=== PATIENT | male | born 1945 | race African-American/Black ===

== ENCOUNTER 2017-04-26 03:53 | Emergency (ER) | payer OTHER ==
[2017-04-26 04:03] VITALS: BP 168/79; BMI 32.3
--- NOTE | 2017-04-26 04:42 | DR.HTN ---
HPI - Time Seen Time seen: 04:14 - Primary Care Physician Primary Care Physician: SUNNY - Complaints Chief Complaint Doctors Comments: Patients spouse is here to get her blood pressure evaluated. She has been seen by her primary care provider and her blood pressure is not controlled. She is on single drug therapy. Chief Complaint:: MY BLOOD PRESSURE WAS HIGH ONCE THIS WEEK SO SINCE I AM HERE I WANT TO GET MINE CHECKED. DENIES ANY PAIN, DENIES ANY SHORTNESS OF BREATH. - Source History Provided: Patient - Mode of Arrival Mode of Arrival: Ambulatory - Timing Onset of Chief Complaint: 04/26/17 PMH - PMH Past Medical History: Yes Past Medical History: Dyslipidemia, Gout, Hypertension Past Surgical History: Yes Surgical History: Angioplasty/Stents - Family History History of Family Medical Conditions: Yes Family Medical History: Diabetes Mellitus, Hypertension - Social History Does patient currently use any type of tobacco product: No Have you used tobacco products in the last 12 months: No Type of Tobacco Use: None Does any household member use tobacco: No Alcohol Use: None Do you use any recreational Drugs:: No Lives With: Spouse Lives Where: Home - infectious screening Have you traveled outside the country in the last 6 months?: No Isolation: Standard ROS - Review of Systems Eyes: No Symptoms Reported ENTM: No Symptoms Reported Respiratoy: No Symptoms Reported Cardiovascular: No Symptoms Reported Gastrointestinal/Abdominal: No Symptoms Reported Genitourinary: No Symptoms Reported Neurological: No Symptoms Reported Musculoskeletal: No Symptoms Reported Integumentary: No Symptoms Reported Hematologic/Lymphatic: No Symptoms Reported Endocrine: No Symptoms Reported Psychiatric: No Symptoms Reported All Other Systems: Reviewed and Negative PE - Vital Signs Vitals: Temperature 98.6 F Pulse Rate 73 Respiratory Rate 18 Blood Pressure [Left Arm] 130/91 Blood Pressure [Right Arm] 129/68 Blood Pressure 168/79 O2 Sat by Pulse Oximetry 95 - General Limitations: No Limitations General Appearance: Alert - Head Head Exam: Normal Inspection, Atraumatic - Eyes Eye exam: Normal Appearance, PERRL, EOMI Pupils: Regular, Round: Bilateral Sclera/Conjunctival: Normal Inspection: Bilateral - ENT ENT Exam: Normal Exam, Normal Oropharynx - Neck Neck Exam: Normal Inspection, Full ROM - Chest Chest Inspection: Normal Inspection - Respiratory Respiratory Exam: Normal Lung Sounds Bilat Respiratory Exam: Bilateral Clear to Auscultation - Cardiovascular Cardiovascular Exam: Regular Rate, Normal Rhythm - Abdominal Exam Abdominal Exam: Normal Inspection, Normal Bowel Sounds Abdominal Tenderness: negative: RUQ, RLQ, LUQ, LLQ, Epigastrium, Suprapubic, Diffuse, Mild, Moderate, Severe, Other - Extremities Extremities Exam: Normal Inspection, Full ROM - Back Back Exam: Normal Inspection - Neurologic Neurological Exam: Alert, Oriented X3, CN II-XII Intact Speech: Fluid Speech Cranial Nerve Exam: EOM Function (II, III, IV, ): Normal Motor Strength - LUE: 3/5 Upper Motor Neuron Exam: Goyo Neglect: Normal Sensory Exam Upper Extremity: Light Touch: Normal Sensory Exam Lower Extremity: Light Touch: Normal - Psychiatric Psychiatric Exam: Normal Affect - Diagnosis Discharge Problem: Hypertension Qualifiers: Hypertension type: essential hypertension Qualified Code(s): I10 - Essential ( primary) hypertension - Discharge Plan Condition: Stable - Follow ups/Referrals Follow ups/Referrals: MARYELLEN CORREA [Primary Care Provider] - 3 days - Instructions
== END 2017-04-26 05:34 | disposition home or self-care (01) ==
LOC: ER 03:53
DX: I10 Essential (primary) hypertension (principal)
CPT/HCPCS: 99281; 99282

== ENCOUNTER 2017-07-23 16:14 | Observation (INO) | payer OTHER ==
[2017-07-23] MEDS ORDERED: MORPHINE SULFATE INJ 2 MG INJ IVP PRN (17:07)
[2017-07-23] MEDS ORDERED: APRESOLINE INJ 20 MG VIAL IVP PRN (17:07)
[2017-07-23 17:34] VITALS: BMI 33.2
[2017-07-23 17:45] LABS: ALANINE AMINOTRANSFERASE 12 Units/L (12-78); ALBUMIN 3.1 g/dL (3.4-5.0); ALKALINE PHOSPHATASE 114 Units/L (46-116); ASPARTATE AMINO TRANSFERASE < 6 Units/L (15-37); BLOOD UREA NITROGEN 10 mg/dL (7-18); CHLORIDE 105 mmol/L (98-107); COR CA(FOR HYPOALB) 9.7 mg/dL (8.5-10.1); CREATININE 0.98 mg/dL (0.70-1.30); MAGNESIUM 1.7 mg/dL (1.7-2.9); SODIUM 139 mmol/L (136-145); TOTAL PROTEIN 7.8 g/dL (6.4-8.2); eGFR BLACK RACES > 60 (>60); eGFR NON BLACK RACES > 60 (>60)
[2017-07-23] MEDS ORDERED: MAGNESIUM SULFATE 1 GM/100 mL PREMIX 1 GM/100 ML BAG IV PRN (17:47)
[2017-07-23] MEDS ORDERED: POTASSIUM CHLORIDE LIQ 20 MEQ UDC PO PRN (17:47)
[2017-07-23] MEDS ORDERED: MAG-OX TAB PO PRN (17:47)
[2017-07-23] MEDS ORDERED: K-RIDER 10 MEQ/NS 100 ML 10 MEQ/100 ML BAG IV PRN (17:47)
[2017-07-23] MEDS ORDERED: POTASSIUM CHL 40 MEQ/NS 0.45% 500 ML IV PRN (17:47)
[2017-07-23] MEDS ORDERED: POTASSIUM CHL 60 MEQ/NS 0.45% 500 ML IV PRN (17:47)
[2017-07-23] MEDS ORDERED: K-LYTE EFFERVESCENT PO PRN (17:47)
[2017-07-23 17:53] LABS: CKMB % 1.8 % (<4); CREATINE KINASE 56 Units/L (39-308); CREATINE KINASE MB < 1.0 ng/mL (0-4.0); TROPONIN I 0.12 ng/mL (0-1.5)
[2017-07-23 17:59] LABS: BASOPHILS # (AUTO) 0.1 X10^3/uL (0.0-0.1); BASOPHILS % (AUTO) 1.4 % (0.2-1.0); EOSINOPHILS # (AUTO) 0.6 x10^3/uL (0.0-0.2); EOSINOPHILS % (AUTO) 5.7 % (0.9-2.9); HEMATOCRIT 33.5 % (42.0-54.0); LYMPHOCYTES # (AUTO) 2.2 X10^3/uL (1.3-2.9); LYMPHOCYTES % (AUTO) 20.8 % (21.0-51.0); MEAN CORPUSCULAR HEMOGLOBIN 17.8 pg (27.0-34.0); MEAN CORPUSCULAR HGB CONC 29.8 g/dL (33.0-35.0); MEAN CORPUSCULAR VOLUME 59.8 fL (80.0-100.0); MEAN PLATELET VOLUME 8.6 fL (7.4-11.0); MONOCYTES % (AUTO) 9.4 % (0.0-13.0); NEUTROPHILS # (AUTO) 6.6 x10^3/uL (2.2-4.8); NEUTROPHILS % (AUTO) 62.7 % (42.0-75.0); PLATELET COUNT 349 X10^3/uL (150.0-450.0); RED CELL DISTRIBUTION WIDTH 24.5 % (11.6-16.5); WHITE BLOOD COUNT 10.4 X10^3/uL (3.6-10.0)
[2017-07-23 18:09] LABS: HYPOCHROMASIA 3+; PLATELET MORPHOLOGY COMMENT NORMAL (NORMAL)
[2017-07-23 18:10] LABS: ANISOCYTOSIS 3+; MICROCYTOSIS 3+; POIKILOCYTOSIS SLIGHT; TARGET CELLS PRESENT
--- NOTE | 2017-07-23 18:16 | DR.H&P ---
H&P - History & Physical for Day of: H&P Date: 07/23/17 - Chief Complaint Chief Complaint: JACOB, ELEVATED BP - Allergies Allergies/Adverse Reactions: Allergies Allergy/AdvReac Type Severity Reaction Status Date / Time No Known Drug Allergies Allergy Verified 04/26/17 04:00 - History of Present Illness History of Present Illness: 72 BM DIRECT ADMIT FROM DR WHEAT OFFICE WITH HYPERTENSIVE URGENCY. PT WAS GIVEN CATAPRES 0.1 PO IN OFFICE WITH BP 200/90, PT HAS PMH OF HTN AND CAD, DM, OA, GERD. PT STATES HE HAS TAKEN OTC MEDICATION FOR ALLERGIES THIS PAST WEEK. PT CO EPISODE OF "INDIGESTION" LAST PM CAUSING HIM TO BREAK OUT IN A SWEAT. PLAN TO ADMIT TO RO AMI, BP CONTROL - Past Medical History Past Medical History: Arthritis, Coronary Artery Disease, Dyslipidemia, GERD, Gout, Hypertension - Past Surgical History Surgical History: Angioplasty/Stents - Family History Family Medical History: Diabetes Mellitus, Cancer, Hypertension - Social History Does patient currently use any type of tobacco product: No Have you used tobacco products in the last 12 months: No How many years tobacco product used: 10 Alcohol Use: None Drug Use: None - Medications Home Medications: Allopurinol [ZYLOPRIM tab 100 mg *] 1 tab PO DAILY 07/23/17 [History Confirmed 07/23/17] Cefdinir [OMNICEF CAP 300 mg *] 1 tab PO BID 07/23/17 [History Confirmed ] Fluticasone Nasal [place] [FLONASE NASAL SPRAY *] 1 spray YARELIS BID 07/23/17 [ History Confirmed 07/23/17] Meloxicam [Meloxicam] 1 tab PO DAILY 07/23/17 [History Confirmed 07/23/17] - Review of Systems Constitutional: No Symptoms Reported Eyes: No Symptoms Reported ENT: No Symptoms Reported Respiratory: Cough, SOB with Excertion Cardiovascular: Other ("INDIGESTION" HOLDING CHEST ) Gastrointestinal: Nausea Genitourinary: No Symptoms Reported Musculoskeletal: No Symptoms Reported Skin: No Symptoms Reported Neurological: No Symptoms Reported - Physical Exam Vital Signs: Temperature 97.8 F Pulse Rate [Apical] 79 Respiratory Rate 22 Blood Pressure [Left Arm] 166/87 Blood Pressure [Right Arm] 129/68 Blood Pressure 168/79 O2 Sat by Pulse Oximetry 96 Oriented: Normal Eyes: Normal Ear: Normal Nose: Normal Throat: Normal Respiratory: RLL Diminished, LLL Diminished Cardiovascular: Normal : Normal Auscultation: Bowel Sounds: Normal Palpation: Normal Tenderness: Normal Skin: Normal Musculoskeletal: Back:Lumbar Mood Description: Calm Speech Pattern: Clear, Appropriate - Assessment/Plan (1) Hypertensive urgency Status: Acute Plan: ADMIT ICU, SERIAL CE, EKG'S. ASPIRIN, BP CONTROL IV HYDRALAZINE PO CATAPRES. RESUME HOME MEDS, FLP, SUPPLEMENTAL O2 (2) Chest pain Status: Acute (3) Diabetes Status: Acute (4) Osteoarthritis Status: Acute
[2017-07-23] MEDS: ECOTRIN TAB 325 MG PO SCH (18:22)
[2017-07-23 18:40] LABS: BILIRUBIN,URINE NEGATIVE (NEGATIVE); BLOOD/HEMOGLOBIN,URINE 1+ (NEGATIVE); GLUCOSE, URINE NEGATIVE (NEGATIVE); KETONES,URINE NEGATIVE (NEGATIVE); LEUKOCYTE ESTERASE ,URINE NEGATIVE (NEGATIVE); NITRITES,URINE NEGATIVE (NEGATIVE); PROTEIN,URINE NEGATIVE (NEGATIVE); UROBILINOGEN,URINE NORMAL (NORMAL)
[2017-07-23 18:46] LABS: APPEARANCE,URINE CLEAR (CLEAR); BACTERIA,URINE NEGATIVE /HPF (NEGATIVE); COLOR,URINE YELLOW (YELLOW); RBC,URINE 0-3 /HPF (NONE SEEN); SQUAMOUS EPITHELIAL CELL,UR FEW /HPF (NEGATIVE)
[2017-07-23] MEDS: COREG TAB 12.5 MG PO SCH (20:03)
[2017-07-23] MEDS: FLONASE NASAL SPRAY ENOSTRIL SCH (21:31)
[2017-07-23 23:14] LABS: CKMB % 2.2 % (<4); CREATINE KINASE 45 Units/L (39-308); CREATINE KINASE MB < 1.0 ng/mL (0-4.0); TROPONIN I 0.11 ng/mL (0-1.5)
[2017-07-24 06:52] LABS: CKMB % 2.4 % (<4); CREATINE KINASE 42 Units/L (39-308); CREATINE KINASE MB < 1.0 ng/mL (0-4.0); MAGNESIUM 1.9 mg/dL (1.7-2.9); TROPONIN I 0.11 ng/mL (0-1.5)
[2017-07-24 08:14] LABS: ALANINE AMINOTRANSFERASE 13 Units/L (12-78); ALBUMIN 2.8 g/dL (3.4-5.0); ALKALINE PHOSPHATASE 108 Units/L (46-116); ASPARTATE AMINO TRANSFERASE 12 Units/L (15-37); BLOOD UREA NITROGEN 14 mg/dL (7-18); CALCIUM 9.2 mg/dL (8.5-10.1); CARBON DIOXIDE 22.3 mmol/L (21-32); CHLORIDE 105 mmol/L (98-107); COR CA(FOR HYPOALB) 10.2 mg/dL (8.5-10.1); CREATININE 0.85 mg/dL (0.70-1.30); SODIUM 139 mmol/L (136-145); TOTAL PROTEIN 7.5 g/dL (6.4-8.2); eGFR BLACK RACES > 60 (>60); eGFR NON BLACK RACES > 60 (>60)
[2017-07-24 08:26] LABS: BASOPHILS % (AUTO) 0.6 % (0.2-1.0); EOSINOPHILS # (AUTO) 0.5 x10^3/uL (0.0-0.2); EOSINOPHILS % (AUTO) 6.1 % (0.9-2.9); HEMATOCRIT 33.5 % (42.0-54.0); HEMOGLOBIN 10.1 g/dL (13.5-18.0); LYMPHOCYTES # (AUTO) 1.9 X10^3/uL (1.3-2.9); LYMPHOCYTES % (AUTO) 23.7 % (21.0-51.0); MEAN CORPUSCULAR HEMOGLOBIN 18.4 pg (27.0-34.0); MEAN CORPUSCULAR HGB CONC 30.2 g/dL (33.0-35.0); MEAN CORPUSCULAR VOLUME 60.8 fL (80.0-100.0); MEAN PLATELET VOLUME 8.9 fL (7.4-11.0); MONOCYTES # (AUTO) 0.9 x10^3/uL (0.3-0.8); MONOCYTES % (AUTO) 11.2 % (0.0-13.0); NEUTROPHILS # (AUTO) 4.7 x10^3/uL (2.2-4.8); NEUTROPHILS % (AUTO) 58.4 % (42.0-75.0); PLATELET COUNT 341 X10^3/uL (150.0-450.0); RED BLOOD COUNT 5.51 X10^6/uL (4.7-6.0); RED CELL DISTRIBUTION WIDTH 24.3 % (11.6-16.5)
[2017-07-24 08:43] LABS: ANISOCYTOSIS 3+; HYPOCHROMASIA 3+; MICROCYTOSIS 2+; PLATELET MORPHOLOGY COMMENT NORMAL (NORMAL)
[2017-07-24] MEDS ORDERED: ZYLOPRIM PO SCH (09:00)
[2017-07-24] MEDS: ECOTRIN TAB 325 MG PO SCH (09:46)
[2017-07-24] MEDS: COREG TAB 12.5 MG PO SCH (09:46)
[2017-07-24] MEDS: FLONASE NASAL SPRAY ENOSTRIL SCH (09:47)
[2017-07-24 12:22] VITALS: BP 130/67
[2017-07-24] MEDS ORDERED: MAALOX or MYLANTA PO PRN (13:00)
== END 2017-07-24 14:15 | disposition short-term general hospital (02) ==
LOC: ICU 16:14
PROVIDERS: ADMIT Internal Medicine; ATTEND Internal Medicine
DX: I16.0 Hypertensive urgency (principal); R07.89 Other chest pain; E11.9 Type 2 diabetes mellitus without complications; M19.90 Unspecified osteoarthritis, unspecified site; R94.31 Abnormal electrocardiogram [ECG] [EKG]; Z86.79 Personal history of other diseases of the circulatory system; Z98.61 Coronary angioplasty status
CPT/HCPCS: 36415; 80053; 80061; 81001; 82550; 82553; 83735; 84484; 85025; 85610; 85730; 93005; 93010; A4216; A4222; G0378; J0360

== ENCOUNTER → 2017-09-01 | Outpatient (CLI) | payer OTHER | LOC: RT 12:16 | PROVIDERS: ATTEND Internal Medicine | DX: Z01.818 Encounter for other preprocedural examination (principal); R04.0 Epistaxis; I10 Essential (primary) hypertension | CPT/HCPCS: 93005; 93010 ==